=== PATIENT | female | born 2000 | race Hispanic/Latino ===

== ENCOUNTER 2022-04-29 00:29 | Emergency (ER) | payer OTHER ==
[~2022-04-29] VITALS: Ht 152.4 cm; Wt 59.5 kg
[2022-04-29 00:33] VITALS: BP 124/82
[2022-04-29 01:04] LABS: BASOPHILS % (AUTO) 0.3 % (0.0-5.0); HEMATOCRIT 38.5 % (36-48); LYMPHOCYTES % (AUTO) 29.5 % (21.0-51.0); MEAN CORPUSCULAR HEMOGLOBIN 30.7 pg (27.0-33.0); MEAN CORPUSCULAR HGB CONC 33.8 g/dL (32.0-36.0); MEAN CORPUSCULAR VOLUME 90.8 fL (79-99); MONOCYTES % (AUTO) 9.1 % (3.0-13.0); NEUTROPHILS % (AUTO) 59.9 % (40.0-77.0); PLATELET COUNT (AUTO) 254 K/uL (130-400); RED BLOOD CELL COUNT(AUTO) 4.24 MIL/uL (4.00-5.50); RED CELL DISTRIBUTION WIDTH 13.1 % (11.0-15.5); WHITE BLOOD COUNT (AUTO) 9.6 K/uL (4.8-10.8)
[2022-04-29 01:05] LABS: BILIRUBIN,URINE NEGATIVE (NEGATIVE); COLOR,URINE YELLOW (YELLOW); GLUCOSE, URINE (UA) NEGATIVE (NEGATIVE); KETONES,URINE NEGATIVE (NEGATIVE); LEUKOCYTE ESTERASE ,URINE NEGATIVE Leu/uL (NEGATIVE); NITRATE,URINE NEGATIVE (NEGATIVE); OCCULT BLOOD,URINE SMALL (NEGATIVE); PROTEIN,URINE NEGATIVE (NEGATIVE)
[2022-04-29 01:06] LABS: APPEARANCE,URINE CLOUDY (CLEAR)
[2022-04-29 01:13] LABS: BACTERIA,URINE None Seen /HPF (None Seen); SQUAMOUS EPITHELIAL CELL,UR Few /HPF (0-2); WBC,URINE None Seen /HPF (0-1)
[2022-04-29 01:19] LABS: POTASSIUM 3.6 mmol/L (3.5-5.1)
[2022-04-29 01:33] LABS: ALBUMIN 4.4 g/dL (3.5-5.0); CREATININE 0.8 mg/dL (0.5-1.5); TOTAL PROTEIN, SERUM 7.9 g/dL (6.0-8.3)
[2022-04-29] MEDS ORDERED: PROCHLORPERAZINE 10MG/2ML INJ IV ONE (02:30)
[2022-04-29] MEDS ORDERED: FAMOTIDINE 20MG VIAL IV ONE (02:30)
[2022-04-29] MEDS ORDERED: DiphenhydrAMINE HCL 50 MG/ML VIAL IV ONE (02:30)
[2022-04-29] MEDS ORDERED: FAMO-136 PO (02:32)
== END 2022-04-29 03:03 | disposition home or self-care (01) ==
LOC: EDH 00:29
DX: K29.00 Acute gastritis without bleeding (principal)
CPT/HCPCS: 99284; 96374; 96375; 80053; 83690; 85025; 81001; 81025; 36415; J1200; J3490; J0780

== ENCOUNTER 2023-11-29 18:06 | Inpatient (IN) | payer SELFPAY ==
[~2023-11-29] VITALS: Ht 149.9 cm; Wt 54.5 kg
[~2023-11-29 18:06] MED LIST: FAMO-136 PO
[2023-11-29 18:31] LABS: BASOPHILS # (AUTO) 0.03 K/uL (0.00-0.20); BASOPHILS % (AUTO) 0.3 % (0.0-5.0); EOSINOPHILS # (AUTO) 0.04 K/uL (0.00-0.70); EOSINOPHILS % (AUTO) 0.5 % (0.0-8.0); HEMATOCRIT 38.2 % (36-48); IMMATURE GRANULOCYTE ABSOLUTE 0.03 K/uL (0-1); LYMPHOCYTES % (AUTO) 23.3 % (21.0-51.0); MEAN CORPUSCULAR HEMOGLOBIN 30.4 pg (27.0-33.0); MEAN CORPUSCULAR VOLUME 89.5 fL (79-99); MONOCYTES # (AUTO) 0.8 K/uL (0.1-1.0); MONOCYTES % (AUTO) 8.9 % (3.0-13.0); NEUTROPHILS # (AUTO) 5.8 K/uL (1.8-7.7); NEUTROPHILS % (AUTO) 66.7 % (40.0-77.0); PLATELET COUNT (AUTO) 262 K/uL (130-400); RED BLOOD CELL COUNT(AUTO) 4.27 MIL/uL (4.00-5.50); RED CELL DISTRIBUTION WIDTH 13.1 % (11.0-15.5); WHITE BLOOD COUNT (AUTO) 8.7 K/uL (4.8-10.8)
[2023-11-29 18:44] LABS: APPEARANCE,URINE CLEAR (CLEAR); BILIRUBIN,URINE NEGATIVE (NEGATIVE); COLOR,URINE LIGHT-YELLOW (YELLOW); GLUCOSE, URINE (UA) NEGATIVE (NEGATIVE); KETONES,URINE NEGATIVE (NEGATIVE); LEUKOCYTE ESTERASE ,URINE 25 Leu/uL (NEGATIVE); NITRATE,URINE NEGATIVE (NEGATIVE); OCCULT BLOOD,URINE NEGATIVE (NEGATIVE); PH,URINE 5.5 (5.0-8.0); PROTEIN,URINE NEGATIVE (NEGATIVE); UROBILINOGEN,URINE 0.2 mg/dL (0.2-1.0)
[2023-11-29 18:45] LABS: CREATININE 0.7 mg/dL (0.5-1.0); POTASSIUM 3.7 mmol/L (3.5-5.1)
[2023-11-29 18:45] LABS: ADD UA MICROSCOPIC YES
[2023-11-29 18:47] LABS: MUCUS,URINE RARE LPF (None Seen); RBC,URINE 0-1 /HPF (0-1); SQUAMOUS EPITHELIAL CELL,UR FEW /HPF (0-2)
[2023-11-29] MEDS: ondanSETRON 4MG INJ IVP ONE (19:06)
[2023-11-29] MEDS: 0.9%NACL 1000ML 1,000 ML IV ONE (19:06)
[2023-11-29] MEDS: morPHINE 2 MG SYG IVP ONE (19:06)
[2023-11-29] MEDS ORDERED: IOHEXOL-350 75 ML VIAL IV ONE (19:19)
[2023-11-29] MEDS: LACTULOSE 20 GM/30 ML UDCUP PO ONE (21:34)
[2023-11-29] MEDS: MAGNESIUM CITRATE 296 ML SOLUTION PO ONE (21:34)
[2023-11-29] MEDS: acetaMINOPHEN 500 MG TABLET PO ONE (21:45)
[2023-11-29] MEDS: ketOROlac 15MG/ML VIAL (15MG/ML) IV ONE (22:29)
[2023-11-29] MEDS ORDERED: acetaMINOPHEN 325 MG TAB PO PRN ×2 (23:30)
[2023-11-29] MEDS ORDERED: acetaMINOPHEN WITH coDEINE 1 TAB TAB PO PRN (23:30)
[2023-11-29] MEDS ORDERED: ondanSETRON 4MG INJ IV PRN (23:30)
[2023-11-29] MEDS: 0.9%NACL 1000ML 1,000 ML IV SCH (23:48)
[2023-11-30] VITALS (8 sets, daily range): BP systolic 108–140; BP diastolic 44–74; PULSE 54–63; RESP 16–21; TEMP 97.4–98.3; O2SAT 95–100
[2023-11-30] MEDS ORDERED: TAMS-1 PO (00:25)
[2023-11-30] MEDS ORDERED: DUTA0.5C37 PO (00:25)
[2023-11-30] MEDS ORDERED: ROSU10TA72 PO (00:25)
[2023-11-30] MEDS ORDERED: FENO135C4 PO (00:25)
[2023-11-30] MEDS ORDERED: LISI20TA24 PO (00:25)
[2023-11-30] MEDS ORDERED: TRAM50TA4 PO (00:25)
[2023-11-30 05:17] LABS: ALBUMIN 3.2 g/dL (3.5-5.0); BILIRUBIN,TOTAL 0.6 mg/dL (0.2-1.0); CREATININE 0.7 mg/dL (0.5-1.0); POTASSIUM 3.4 mmol/L (3.5-5.1); TOTAL PROTEIN, SERUM 6.2 g/dL (6.0-8.3)
[2023-11-30 05:20] LABS: BASOPHILS # (AUTO) 0.02 K/uL (0.00-0.20); BASOPHILS % (AUTO) 0.2 % (0.0-5.0); EOSINOPHILS # (AUTO) 0.07 K/uL (0.00-0.70); EOSINOPHILS % (AUTO) 0.8 % (0.0-8.0); HEMATOCRIT 30.6 % (36-48); IMMATURE GRANULOCYTE ABSOLUTE 0.02 K/uL (0-1); LYMPHOCYTES # (AUTO) 2.1 K/uL (1.0-4.8); LYMPHOCYTES % (AUTO) 25.1 % (21.0-51.0); MEAN CORPUSCULAR HEMOGLOBIN 30.4 pg (27.0-33.0); MEAN CORPUSCULAR HGB CONC 33.3 g/dL (32.0-36.0); MEAN CORPUSCULAR VOLUME 91.1 fL (79-99); MONOCYTES # (AUTO) 0.9 K/uL (0.1-1.0); MONOCYTES % (AUTO) 10.9 % (3.0-13.0); NEUTROPHILS # (AUTO) 5.2 K/uL (1.8-7.7); NEUTROPHILS % (AUTO) 62.8 % (40.0-77.0); PLATELET COUNT (AUTO) 220 K/uL (130-400); RED BLOOD CELL COUNT(AUTO) 3.36 MIL/uL (4.00-5.50); RED CELL DISTRIBUTION WIDTH 13.2 % (11.0-15.5); WHITE BLOOD COUNT (AUTO) 8.3 K/uL (4.8-10.8)
[2023-11-30 06:44] LABS: ERYTHROCYTE SEDIMENTATION RATE 2 MM/HR (0-20)
[2023-11-30] MEDS: doCUSate SODIUM 100 MG CAP PO ONE (09:11)
[2023-11-30] MEDS: FAMOTIDINE 20MG VIAL IV SCH (09:11)
[2023-11-30] MEDS: SENNOSIDES 8.6 MG TABLET PO SCH (09:11)
[2023-11-30] MEDS: acetaMINOPHEN WITH coDEINE 1 TAB TAB PO PRN (09:19)
[2023-11-30] MEDS ORDERED: PoTASSium chloRIDE 20MEQ/100ML 100 ML IV PRN (10:00)
[2023-11-30] MEDS: PoTASSium chl 10% ELIXIR 20MEQ 20 MEQ/15 ML UDCUP PO PRN (10:25)
[2023-11-30] MEDS ORDERED: DIATR MEGLU/DIATRIZOATE SODIUM 30 ML BOTTLE ONE (13:05)
[2023-11-30] MEDS ORDERED: IOHEXOL-350 75 ML VIAL IV ONE (13:06)
[2023-11-30] MEDS: doCUSate SODIUM 100 MG CAP PO SCH (20:46)
[2023-11-30] MEDS: LACTULOSE 20 GM/30 ML UDCUP PO SCH (20:46)
[2023-12-01] VITALS: BP 113/78; PULSE 61; RESP 20; TEMP 98
[2023-12-01 00:24] LABS: APPEARANCE,URINE CLEAR (CLEAR); BILIRUBIN,URINE NEGATIVE (NEGATIVE); COLOR,URINE COLORLESS (YELLOW); GLUCOSE, URINE (UA) NEGATIVE (NEGATIVE); KETONES,URINE NEGATIVE (NEGATIVE); LEUKOCYTE ESTERASE ,URINE NEGATIVE Leu/uL (NEGATIVE); NITRATE,URINE NEGATIVE (NEGATIVE); OCCULT BLOOD,URINE NEGATIVE (NEGATIVE); PH,URINE 5.5 (5.0-8.0); PROTEIN,URINE NEGATIVE (NEGATIVE); UROBILINOGEN,URINE 0.2 mg/dL (0.2-1.0)
[2023-12-01 00:30] LABS: BACTERIA,URINE RARE /HPF (None Seen); RBC,URINE 0-1 /HPF (0-1); SQUAMOUS EPITHELIAL CELL,UR RARE /HPF (0-2)
[2023-12-01 04:00] VITALS: BP 109/73; PULSE 63; RESP 18; TEMP 98.1
[2023-12-01 04:59] LABS: BASOPHILS # (AUTO) 0.02 K/uL (0.00-0.20); BASOPHILS % (AUTO) 0.2 % (0.0-5.0); EOSINOPHILS # (AUTO) 0.12 K/uL (0.00-0.70); EOSINOPHILS % (AUTO) 1.4 % (0.0-8.0); HEMATOCRIT 34.4 % (36-48); IMMATURE GRANULOCYTE ABSOLUTE 0.03 K/uL (0-1); LYMPHOCYTES # (AUTO) 1.9 K/uL (1.0-4.8); LYMPHOCYTES % (AUTO) 21.2 % (21.0-51.0); MEAN CORPUSCULAR HEMOGLOBIN 30.1 pg (27.0-33.0); MEAN CORPUSCULAR HGB CONC 32.8 g/dL (32.0-36.0); MEAN CORPUSCULAR VOLUME 91.5 fL (79-99); MONOCYTES # (AUTO) 0.7 K/uL (0.1-1.0); MONOCYTES % (AUTO) 8.1 % (3.0-13.0); NEUTROPHILS # (AUTO) 6.1 K/uL (1.8-7.7); NEUTROPHILS % (AUTO) 68.8 % (40.0-77.0); PLATELET COUNT (AUTO) 221 K/uL (130-400); RED BLOOD CELL COUNT(AUTO) 3.76 MIL/uL (4.00-5.50); RED CELL DISTRIBUTION WIDTH 13.2 % (11.0-15.5); WHITE BLOOD COUNT (AUTO) 8.8 K/uL (4.8-10.8)
[2023-12-01 05:04] LABS: CREATININE 0.8 mg/dL (0.5-1.0); POTASSIUM 3.5 mmol/L (3.5-5.1)
[2023-12-01] MEDS: PoTASSium chloRIDE 20MEQ ER 20 MEQ ERTAB PO PRN (06:33)
[2023-12-01 08:00] VITALS: O2SAT 99
[2023-12-01 08:01] VITALS: BP 115/77; PULSE 59; RESP 16; TEMP 98.4
[2023-12-01 11:19] VITALS: BP 119/63; PULSE 60; RESP 16; TEMP 98.2
== END 2023-12-01 14:45 | disposition home or self-care (01) | DRG 392 ==
LOC: EDH 18:06 → EDHIP 18:07 → 3BH 11-30 00:10
PROVIDERS: ADMIT Internal Medicine; ATTEND Internal Medicine
DX: K59.00 Constipation, unspecified (principal); N83.292 Other ovarian cyst, left side; Z79.899 Other long term (current) drug therapy
CPT/HCPCS: 36415; 74177; 76856; 80048; 80053; 81001; 83605; 84145; 84484; 84702; 85025; 85651; 87086; 96374; 96375; G0378; J1885; J2270; J2405; J3490; J7030; Q9963; Q9967